=== PATIENT | female | born 1990 | race Caucasian/White ===

== ENCOUNTER 2021-03-15 15:09 | Inpatient (IN) | payer MEDICAID ==
[~2021-03-15] VITALS: Ht 167.6 cm; Wt 102.0 kg
[2021-03-15] MEDS ORDERED: ACETAMINOPHEN 325MG TABLET PO ONE (16:30)
[2021-03-15] MEDS ORDERED: FAMOTIDINE 20MG TABLET PO ONE (16:30)
[2021-03-15 16:49] LABS: CHLORIDE 107 mEq/L (98-107)
[2021-03-15 16:50] LABS: BASOPHILS % 0.6 % (0.0-2.0); EOSINOPHILS % 0.8 % (0.0-5.0); HEMATOCRIT. 29.8 % (36.0-48.0); HEMOGLOBIN. 9.9 g/dL (12.0-16.0); LYMPHOCYTES % 18.6 % (20.0-50.0); MEAN CORPUSCULAR HEMOGLOBIN 28.3 pg (28.0-32.0); MEAN CORPUSCULAR VOLUME 85.3 fL (81.0-99.0); MEAN PLATELET VOLUME 10.4 fl (7.4-10.4); MONOCYTES % 10.2 % (2.0-8.0); NEUTROPHILS % 69.8 % (40.0-76.0); PLATELET 160 x1000/uL (130-400); RED CELL DISTRIBUTION WIDTH 15.4 % (11.6-14.6)
[2021-03-15] MEDS: LACTATED RINGERS 1,000 ML IV SCH (23:23)
[2021-03-15 23:51] LABS: CLARITY URINE CLEAR (CLEAR); COLOR URINE YELLOW (YELLOW); KETONES URINE NEGATIVE (NEGATIVE); LEUKOCYTE ESTERASE URINE 1+ (NEGATIVE); NITRITE URINE NEGATIVE (NEGATIVE); OCCULT BLOOD URINE TRACE (NEGATIVE); PROTEIN URINE 2+ (NEGATIVE); SPECIFIC GRAVITY URINE 1.021 (1.005-1.030)
[2021-03-16 00:02] LABS: INR 0.9; PARTIAL THROMBOPLASTIN TIME 25.7 sec (23.4-31.0); PROTHROMBIN TIME 9.3 sec (9.6-11.0)
[2021-03-16 00:08] LABS: *AMPHETAMINES SCREEN URINE NEGATIVE (NEGATIVE); *BARBITURATES SCREEN URINE NEGATIVE (NEGATIVE); *BENZODIAZEPINES SCREEN URINE NEGATIVE (NEGATIVE); *COCAINE SCREEN URINE NEGATIVE (NEGATIVE); CANNABINOID URINE SCREEN NEGATIVE (NEGATIVE); OPIATES URINE SCREEN NEGATIVE (NEGATIVE); PHENCYCLIDINE URINE SCREEN NEGATIVE (NEGATIVE)
[2021-03-16 00:09] LABS: METHADONE URINE SCREEN NEGATIVE (NEGATIVE)
[2021-03-16 00:32] LABS: HEPATITIS B SURFACE ANTIGEN NEGATIVE
[2021-03-16] MEDS: LACTATED RINGERS 1,000 ML IV SCH (05:36)
[2021-03-16] MEDS ORDERED: METHYLERGONOVINE MALEATE 0.2 MG/ML IM PRN (06:30)
[2021-03-16] MEDS ORDERED: CITRIC ACID/SODIUM CITRATE SOLN 30ML UDC PO ONE (06:30)
[2021-03-16] MEDS ORDERED: NALOXONE HCL 0.4 MG/ML 1ML VIAL IV ONE (06:30)
[2021-03-16] MEDS ORDERED: DEXT 5%/LR + PITOCIN 20UNITS/L 1,000 ML IV SCH ×2 (06:30→09:45)
[2021-03-16] MEDS ORDERED: ONDANSETRON HCL 4MG/2ML INJ ONE (07:25)
[2021-03-16] MEDS ORDERED: CEFAZOLIN SODIUM 1000MG/VIAL ONE (07:25)
[2021-03-16] MEDS ORDERED: EPHEDRINE SULFATE 50MG/ML VIAL ONE (07:25)
[2021-03-16] MEDS ORDERED: MORPHINE SULFATE/PF 1MG/ML 10ML AMP ONE (07:25)
[2021-03-16] MEDS ORDERED: OXYTOCIN 10 UNITS/ML 1ML ONE ×3 (07:25→10:00)
[2021-03-16] MEDS ORDERED: FENTANYL CITRATE/PF 50MCG/ML 2ML VIAL ONE (07:25)
[2021-03-16] MEDS ORDERED: PHENYLEPHRINE HCL 10 MG/ML 1ML (IV VIAL) IV ONE (07:25)
[2021-03-16] MEDS ORDERED: DIPHENHYDRAMINE 50MG/ML VIAL ONE (08:14)
[2021-03-16] MEDS ORDERED: BUTORPHANOL TARTRATE 2 MG/ML VIAL IV PRN ×2 (08:15)
[2021-03-16] MEDS ORDERED: NALOXONE HCL 0.4 MG/ML 1ML VIAL IV PRN (08:15)
[2021-03-16] MEDS ORDERED: DIPHENHYDRAMINE 50MG/ML VIAL IV PRN (08:15)
[2021-03-16] MEDS ORDERED: DIPHENHYDRAMINE 25MG CAPSULE PO PRN (09:45)
[2021-03-16] MEDS ORDERED: RHO(D) IMMUNE GLOBULIN 300 MCG/SYR IM PRN (09:45)
[2021-03-16] MEDS ORDERED: ONDANSETRON HCL 4MG/2ML INJ IV PRN (09:45)
[2021-03-16] MEDS ORDERED: LANOLIN OINT 7GM TUBE TOP PRN (09:45)
[2021-03-16] MEDS ORDERED: HEMORRHOIDAL SUPP PR PRN (09:45)
[2021-03-16] MEDS ORDERED: HYDRALAZINE 20MG/ML VIAL IV PRN (10:00)
[2021-03-16] MEDS ORDERED: LABETALOL HCL 5MG/ML VIAL 20ML IV PRN ×3 (10:00)
[2021-03-16] MEDS ORDERED: MAGNESIUM 20 G PREMIX (L & D) 500 ML IV SCH (10:00)
[2021-03-16] MEDS ORDERED: METHYLERGONOVINE MALEATE 0.2 MG/ML ONE (10:02)
[2021-03-16 12:00] VITALS: BP 147/84
[2021-03-16] MEDS: MAGNESIUM/ALUMINUM HYDROXIDE/SIMETHICONE 30ML UDC PO SCH ×2 (12:35→14:54)
[2021-03-16] MEDS: SIMETHICONE 80MG TABLET CHEW PO SCH ×2 (13:00→14:54)
[2021-03-16] MEDS ORDERED: OXYTOCIN 20 UNITS in LACTATED RINGERS 1,000 ML IV SCH (13:30)
[2021-03-16 14:20] VITALS: BP 122/67
[2021-03-16 18:00] VITALS: BP 128/75
[2021-03-16] MEDS ORDERED: TETANUS, DIPHTHERIA, PERTUSSIS VAC/PF 0.5ML (>10YR OLD) IM ONE (20:00)
[2021-03-17] VITALS (7 sets, daily range): BP systolic 102–124; BP diastolic 60–80
[2021-03-17] MEDS: IBUPROFEN 400MG TABLET PO PRN ×3 (06:16→19:37)
[2021-03-17 07:50] LABS: BASOPHILS % 0.4 % (0.0-2.0); EOSINOPHILS % 0.4 % (0.0-5.0); HEMATOCRIT. 28.6 % (36.0-48.0); HEMOGLOBIN. 9.6 g/dL (12.0-16.0); LYMPHOCYTES % 13.7 % (20.0-50.0); MEAN CORPUSCULAR HEMOGLOBIN 28.4 pg (28.0-32.0); MEAN CORPUSCULAR VOLUME 84.7 fL (81.0-99.0); MEAN PLATELET VOLUME 10.5 fl (7.4-10.4); MONOCYTES % 7.6 % (2.0-8.0); NEUTROPHILS % 77.9 % (40.0-76.0); PLATELET 170 x1000/uL (130-400); RED BLOOD CELL COUNT 3.38 mill/uL (4.2-5.4); RED CELL DISTRIBUTION WIDTH 15.9 % (11.6-14.6)
[2021-03-17] MEDS: SIMETHICONE 80MG TABLET CHEW PO SCH ×4 (08:00→21:19)
[2021-03-17] MEDS: MAGNESIUM/ALUMINUM HYDROXIDE/SIMETHICONE 30ML UDC PO SCH ×4 (08:29→21:17)
[2021-03-17] MEDS: PRENATAL VIT/FE FUMARATE/FA TABLET PO SCH (08:30)
[2021-03-17] MEDS: DOCUSATE SODIUM 100MG CAPSULE PO SCH (21:19)
[2021-03-17] MEDS: BISACODYL 10MG SUPP PR PRN (21:20)
[2021-03-18 00:31] VITALS: BP 121/79
[2021-03-18 04:00] VITALS: BP 123/83
[2021-03-18] MEDS: IBUPROFEN 400MG TABLET PO PRN (04:34)
[2021-03-18 07:52] VITALS: BP 121/73
[2021-03-18] MEDS: MAGNESIUM/ALUMINUM HYDROXIDE/SIMETHICONE 30ML UDC PO SCH ×4 (08:58→21:33)
[2021-03-18] MEDS: PRENATAL VIT/FE FUMARATE/FA TABLET PO SCH (08:58)
[2021-03-18] MEDS: SIMETHICONE 80MG TABLET CHEW PO SCH ×4 (09:00→21:35)
[2021-03-18] MEDS: IBUPROFEN 800MG TABLET PO PRN ×2 (10:15→17:41)
[2021-03-18 16:12] VITALS: BP 121/76
[2021-03-18 19:30] VITALS: BP 127/76
[2021-03-18] MEDS: DOCUSATE SODIUM 100MG CAPSULE PO SCH (21:33)
[2021-03-18] MEDS: BISACODYL 10MG SUPP PR PRN (21:41)
[2021-03-19] MEDS: IBUPROFEN 800MG TABLET PO PRN ×3 (00:12→12:17)
[2021-03-19 04:00] VITALS: BP 126/71
[2021-03-19 07:45] VITALS: BP 123/78
[2021-03-19 08:30] VITALS: BP 147/56
== END 2021-03-19 12:30 | disposition home or self-care (01) | DRG 540 ==
LOC: ER 15:09 → OBSVTOIN 18:53 → 8 EST LDRP 18:53 → EDBEDREQ 19:01 → ENRESERV 20:30 → 8EST 03-16 12:35
PROVIDERS: ADMIT Obstetrics & Gynecology; ATTEND Obstetrics & Gynecology
PROC: 10D00Z1 Extraction of Products of Conception, Low, Open Approach (ICD-10-PCS; principal; 2021-03-16)
DX: O36.63X0 Maternal care for excessive fetal growth, third trimester, not applicable or unspecified (principal); O24.429 Gestational diabetes mellitus in childbirth, unspecified control; R07.9 Chest pain, unspecified; O99.892 Other specified diseases and conditions complicating childbirth; Z20.822 Contact with and (suspected) exposure to COVID-19; Z37.0 Single live birth; Z3A.38 38 weeks gestation of pregnancy; Z88.6 Allergy status to analgesic agent; Z88.8 Allergy status to other drugs, medicaments and biological substances
CPT/HCPCS: 36415; 71045; 76805; 76818; 80053; 80305; 81003; 82962; 83735; 83880; 84484; 85025; 85379; 86592; 86703; 86762; 86850; 86900; 86920; 87340; 87426; 88307; 90715; 93005; 93970; 99291; J0595; J0690; J1200; J2210; J2274; J2370; J2405; J2590; J3010; J3475; J3490; J7120; A4315

== ENCOUNTER 2021-03-27 13:45 | Emergency (ER) | payer MEDICAID ==
[~2021-03-27] VITALS: Ht 167.6 cm; Wt 92.0 kg
[2021-03-27 13:46] VITALS: BP 126/69
== END 2021-03-27 22:35 | disposition left against medical advice (07) ==
LOC: ER 13:45
DX: R68.89 Other general symptoms and signs (principal); Z53.21 Procedure and treatment not carried out due to patient leaving prior to being seen by health care provider